=== PATIENT | female | born 1950 | race Caucasian/White ===

== ENCOUNTER → 2019-10-24 11:41 | Outpatient (BNVA) | payer MEDICARE, SELFPAY | PROVIDERS: Family Provider Nurse Practitioner Family; PCP Nurse Practitioner Family; Visit Provider Specialist | DX: S52.572D Other intraarticular fracture of lower end of left radius, subsequent encounter for closed fracture with routine healing (principal); S62.015D Nondisplaced fracture of distal pole of navicular [scaphoid] bone of left wrist, subsequent encounter for fracture with routine healing; W01.0XXD Fall on same level from slipping, tripping and stumbling without subsequent striking against object, subsequent encounter | CPT/HCPCS: 73110 ==

== ENCOUNTER → 2019-12-03 15:26 | Outpatient (BNVA) | payer MEDICARE, SELFPAY | PROVIDERS: PCP Urology; Visit Provider Urology | DX: N30.20 Other chronic cystitis without hematuria (principal); B37.3 Candidiasis of vulva and vagina | CPT/HCPCS: 81001 ==

== ENCOUNTER → 2020-02-11 13:08 | Outpatient (BNVA) | payer MEDICARE, SELFPAY | PROVIDERS: PCP Urology; Visit Provider Nurse Practitioner Family | DX: E78.5 Hyperlipidemia, unspecified (principal); F41.8 Other specified anxiety disorders; N39.0 Urinary tract infection, site not specified | CPT/HCPCS: 80053; 80061; 85025 ==

== ENCOUNTER → 2020-06-26 09:23 | Outpatient (BNVA) | payer MEDICARE, SELFPAY | PROVIDERS: PCP Urology; Visit Provider Nurse Practitioner Family | DX: E78.5 Hyperlipidemia, unspecified (principal); R73.09 Other abnormal glucose | CPT/HCPCS: 80053; 80061; 83036; 85025 ==

== ENCOUNTER 2020-08-14 14:19 | Outpatient (CLI) | payer MEDICARE, SELFPAY ==
--- NOTE | 2020-08-14 13:30 | MM_ITS ---
WS: [id number] BILATERAL DIGITAL SCREENING MAMMOGRAPHY WITH CAD CLINICAL INFORMATION: screening mammo HISTORY: Screening mammogram. No current complaints. COMPARISON: TECHNIQUE: Bilateral CC and MLO views. FINDINGS: Scattered fibroglandular densities bilaterally. No suspicious focal mass, asymmetry, calcifications, or architectural distortion. No evidence of malignancy. A few tiny punctate calcifications. Stable cl ustered calcifications right breast MM/[place] [id number] IMPRESSION: BI-RADS: 2-Benign FOLLOW UP: 1 Year Follow-up Recommend return to annual screening mammography.
== END 2020-08-14 14:20 | disposition home or self-care (01) ==
PROVIDERS: PCP Nurse Practitioner Family; Visit Provider Nurse Practitioner Family
DX: Z12.31 Encounter for screening mammogram for malignant neoplasm of breast (principal)
CPT/HCPCS: 77067

== ENCOUNTER 2020-11-01 14:33 | Emergency (ER) | payer OTHER, SELFPAY ==
[2020-11-01 15:04] VITALS: BP 132/74; PULSE 68; RESP 14; TEMP 37; O2SAT 97; BMI 31.7
--- NOTE | 2020-11-01 15:07 | XRR_ITS ---
PROCEDURE INFORMATION: Exam: XR Right Wrist Exam date and time: 11/01/2020 3:13 PM Age: 70 years old Clinical indication: Injury or trauma; Fall; Blunt trauma (contusions or hematomas); Wrist; Right TECHNIQUE: Imaging protocol: XR Right wrist. Views: 3 or more views. COMPARISON: No relevant prior studies available. FINDINGS: Bones/joints: There are displaced fractures through the base of the 3rd metacarpal. Multi-articular primary osteoarthritic changes including joint space narrowing, subchondral cystic/sclerotic changes, and marginal osteophyte formations. Edema and/or hematoma is present in the soft tissues adjacent to the fracture site. Soft tissues: See above. XR/XR wrist RT min 3V* [id number] IMPRESSION: There are displaced fractures through the base of the 3rd metacarpal with adjacent soft tissue hematoma.
--- NOTE | 2020-11-01 15:07 | XRR_ITS ---
PROCEDURE INFORMATION: Exam: XR Right Hand Exam date and time: 11/01/2020 3:13 PM Age: 70 years old Clinical indication: Injury or trauma; Fall; Blunt trauma (contusions or hematomas); Hand; Right TECHNIQUE: Imaging protocol: XR Right hand. Views: 3 or more views. COMPARISON: No relevant prior studies available. FINDINGS: Bones/joints: Multi-articular primary osteoarthritic changes including joint space narrowing, subchondral cystic/sclerotic changes, and marginal osteophyte formations. There are displaced fractures through the base of the 3rd metacarpal. There is an 18 mm free fracture fragment which is displaced 6 mm posteriorly and 3 mm proximally. Edema and/or hematoma is present in the soft tissues adjacent to the fracture site. Soft tissues: There are benign-appearing soft tissue calcifications. XR/XR hand RT min 3V* [id number] IMPRESSION: There are displaced fractures through the base of the 3rd metacarpal with adjacent soft tissue changes.
--- NOTE | 2020-11-01 15:19 | ED_ITS ---
HPI - Extremity Problem General: Chief complaint: Extremity Injury, Upper Stated complaint: FALL, PAIN IN RT HAND/WRIST/ELBOW Time Seen by Provider: 11/01/20 15:17 History of Present Illness: HPI Narrative: Patient is a 70-year-old female comes to the ED with right elbow and right hand pain. Patient says she was walking outside and tripped and fell. She landed on her right arm. She now has pain and swelling in the dorsal aspect of her right hand. She also is having pain in her right elbow. She has limited movement in right hand due to pain. Associated symptoms: Deny chest pain, fever(s) or rash Review of Systems Const: Denies: fever(s), chills or fatigue Eyes: Denies: change in vision or eye discomfort ENMT: Denies: throat pain, odynophagia, nasal discharge or nasal congestion Card: Denies: chest pain, palpitations, edema, swelling of feet/ankles, dyspnea on exertion or orthopnea Resp: Denies: dyspnea, productive cough or non-productive cough GI: Denies: abdominal pain, nausea, vomiting, diarrhea, constipation or hematochezia : Denies: flank pain, dysuria or hematuria Musc: Reports: extremity pain (Right hand and elbow) and extremity swelling (Right hand); Denies: neck pain or back pain Skin/Breast: Denies: rash or new lesions Neuro: Denies: headache(s), numbness in extremities or weakness in extremities PFS ED PFSH: Medical History Recurrent UTI Surgical History History of dilation and curettage Family History Mother , AT AGE 56-CANCER No problems noted. Father , AT AGE 83 Asthma Social History Smoking and tobacco status: never smoked Alcohol intake: current Alcohol intake frequency: holidays/special occasions only Desire information about substance/drug rehabilitation?: No Counseling given: No Adopted: No Caregiver/support person: No Lives independently: No Household members: spouse Marital status: Current occupational status: retired History of recent travel: No Physical Exam Const: COMMON NORMALS: no acute distress and patient oriented x3 GENERAL APPEARANCE: cooperative and comfortable HENMT: COMMON NORMALS: normocephalic HEAD & SCALP: normocephalic MOUTH: Normal oral and palatal mucosa present THROAT: posterior oropharynx normal and uvula midline Neck/C-Spine: COMMON NORMALS: supple GENERAL: Yes normal visual inspection Resp: COMMON NORMALS: normal respiratory effort, No retractions, No use of accessory muscles and clear to auscultation bilaterally AUSCULTATION: clear to auscultation bilaterally Cardio: COMMON NORMALS: regular rate, regular rhythm, S1 normal heart sound present, S2 normal heart sound present, No gallops present (Cardio), No clicks present (Cardio), No murmurs present (Cardio) and Peripheral pulses 2+ throughout RATE: regular rate RHYTHM: regular rhythm HEART SOUNDS: S1 normal heart sound present and S2 normal heart sound present PERIPHERAL PULSES: Peripheral pulses 2+ throughout GI: COMMON NORMALS: Normal to inspection, nondistended, normoactive bowel sounds present, Soft to palpation, non-tender and no masses PALPATION: Yes Soft to palpation : COMMON NORMALS: Yes no CVA tenderness BLADDER/KIDNEY EXAM: Yes no CVA tenderness Back/Pelvis: COMMON NORMALS: no CVA tenderness Extremity: GENERAL: Yes normal exam except as noted RIGHT UPPER EXTREMITY: Yes elbow joint (No ecchymosis or edema on elbow) Right elbow: Yes inspection, Yes palpation (Mild tenderness on the lateral aspect of elbow.), Yes ROM (Full with some mild pain) and Yes neurovascular exam (Intact radial pulse 2+) and Yes hand & digits Right hand and digits: Yes inspection (Visible swelling dorsal side second/third metacarp), Yes palpation (Tenderness over second and third metacarpal), Yes ROM exam (Limited due to pain) and Yes neurovascular exam (Intact.) Neuro: COMMON NORMALS: patient oriented x3 and moves all extremities Procedures Nerve Block Nerve Block 1: Time out performed: Yes Local Anesthetic: lidocaine 1% Amount of anesthesia used (mL): 10 Side: right Nerve Blocks: hematoma block (3rd metacarpal fracture-) Procedure Successful: Yes Patient Tolerated Procedure: well Complications: none Additional Comments: Patient tolerated procedure well and had very minimal pain when putting pressure in reducing fracture for splint. Course Vital Signs: Vital signs: Vital Signs Temperature 98.6 F 11/01/20 15:04 Pulse Rate 68 11/01/20 15:04 Respiratory Rate 14 11/01/20 15:04 Blood Pressure 132/74 11/01/20 15:04 Pulse Oximetry 97 11/01/20 15:04 MDM - Extremity (Nontraumatic) MDM Narrative: Medical decision making narrative: Patient is a 70-year-old female comes to the ED with right hand and right elbow pain. X-ray showed a third metacarpal fracture that was displaced. I performed a hematoma block for pain management and nurse reduced and splinted right hand and volar splint. Follow-up x-rays were performed and it showed displaced fracture alignment improved. Right elbow x-ray showed no acute fractures or findings, but patient was put in a sling to help with symptoms. I placed an order with case management for patient to be referred to orthopedic doctor. Patient was sent home with pain meds and I told her that case management will contact her in the next several days set up an appointment with orthopedic doctor. She was told to keep splint dry and to limit use of right arm. Return to ED precautions given. Patient understood and agreed with plan. Imaging Data^: Xray Ortho: Attestation: I personally reviewed and interpreted this imaging study as follows: My impression: Right elbow x-ray?no acute fractures or findings. Right hand x-ray showed-displaced fractures through the base of the 3rd metacarpal with adjacent soft tissue changes. Follow-up x-ray of right hand after it was reduced and splinted showed improvement in alignment. Radiologist's impression: [address] [address] XRay Report Signed Patient: Pricila Salinas Unit #: [id number] : 1950 Age/Sex: 70 / F ADM Date: 11/01/20 Loc: ER Room/Bed: Attending Dr: Ordering Provider/Ordering MD: Aris Suazo Date of Service: 11/01/20 Procedure(s): XR hand RT min 3V* 43903 Accession Number(s): [id number] Report Number: [id number] PROCEDURE INFORMATION: Exam: XR Right Hand Exam date and time: 11/01/2020 3:13 PM Age: 70 years old Clinical indication: Injury or trauma; Fall; Blunt trauma (contusions or hematomas); Hand; Right TECHNIQUE: Imaging protocol: XR Right hand. Views: 3 or more views. COMPARISON: No relevant prior studies available. FINDINGS: Bones/joints: Multi-articular primary osteoarthritic changes including joint space narrowing, subchondral cystic/sclerotic changes, and marginal osteophyte formations. There are displaced fractures through the base of the 3rd metacarpal. There is an 18 mm free fracture fragment which is displaced 6 mm posteriorly and 3 mm proximally. Edema and/or hematoma is present in the soft tissues adjacent to the fracture site. Soft tissues: There are benign-appearing soft tissue calcifications. XR/XR hand RT min 3V* [id number] IMPRESSION: There are displaced fractures through the base of the 3rd metacarpal with adjacent soft tissue changes. Dictated By: Indu Huggins MD Signed By: Indu Huggins MD Signed Date/Time: 11/01/20 1537 DD/ [address] [address] XRay Report Signed Patient: Pricila Salinas Unit #: [id number] : 1950 Age/Sex: 70 / F ADM Date: 11/01/20 Loc: ER Room/Bed: Attending Dr: Ordering Provider/Ordering MD: Aris Suazo Date of Service: 11/01/20 Procedure(s): XR hand RT min 3V* 95450 Accession Number(s): [id number] Report Number: [id number] PROCEDURE INFORMATION: Exam: XR Right Hand Exam date and time: 11/01/2020 3:13 PM Age: 70 years old Clinical indication: Injury or trauma; Fall; Blunt trauma (contusions or hematomas); Hand; Right TECHNIQUE: Imaging protocol: XR Right hand. Views: 3 or more views. COMPARISON: No relevant prior studies available. FINDINGS: Bones/joints: Multi-articular primary osteoarthritic changes including joint space narrowing, subchondral cystic/sclerotic changes, and marginal osteophyte formations. There are displaced fractures through the base of the 3rd metacarpal. There is an 18 mm free fracture fragment which is displaced 6 mm posteriorly and 3 mm proximally. Edema and/or hematoma is present in the soft tissues adjacent to the fracture site. Soft tissues: There are benign-appearing soft tissue calcifications. XR/XR hand RT min 3V* [id number] IMPRESSION: There are displaced fractures through the base of the 3rd metacarpal with adjacent soft tissue changes. Dictated By: Indu Huggins MD Signed By: Indu Huggins MD Signed Date/Time: 11/01/201536 DD/ 35 Discharge Plan Discharge Patient Disposition: Home Clinical Impression: Fracture, metacarpal Qualifiers: Encounter type: initial encounter Metacarpal bone: third Fracture type: closed Metacarpal location: base Fracture alignment: displaced Laterality: right Qualified Code(s): S62.312A - Displaced fracture of base of third metacarpal bone, right hand, initial encounter for closed fracture Condition: Stable Prescriptions: No Action atorvastatin [Lipitor] 10 mg tablet 10 mg PO ONCE Qty: 90 RF: 1 fluoxetine [Prozac] 20 mg capsule 20 mg PO DAILY 90 Days Qty: 90 RF: 1 Advanced Probiotic 625 mg (10 billion cell) capsule PO RF: 0 loratadine 10 mg capsule 10 mg PO ONCE RF: 0 sulfamethoxazole-trimethoprim 800-160 mg tablet 1 tab PO BID Qty: 60 RF: 2 Discharge Orders: Discharge ED (Routine); Ordered 11/01/20 Ordered By: Aris Suazo Referrals: Padmini Warren FNP [Primary Care Provider] - Discharge Diet: Regular Discharge Activity: Limit activity as instructed Patient Instructions: Hand Fracture (ED) Activity Restrictions/Additional Instructions: Follow-up with medical provider as directed. Case management should be contacting you in the next several days to set up an appoint with orthopedic doctor. Keep splint on and dry and limit activity with right hand. Take med ications as prescribed. Return to the ER or your medical provider if condition worsens. Please read and understand discharge instructions. If any questions, please ask. Coding Level of Care Code ED Dry Talc Racker for Viraj Fwsaroj Exam Comprehensive
--- NOTE | 2020-11-01 16:03 | XRR_ITS ---
PROCEDURE INFORMATION: Exam: XR Right Hand Exam date and time: 11/01/2020 4:05 PM Age: 70 years old Clinical indication: Injury or trauma; Fall; Blunt trauma (contusions or hematomas); Hand; Right; Additional info: Hand injury, post splinting TECHNIQUE: Imaging protocol: XR Right hand. Views: 3 or more views. COMPARISON: CR (UP EXM, ) 11/01/2020 3:12 PM FINDINGS: Bones/joints: There is been improved alignment of the acute fractures through the base of the 3rd metacarpal. Multi-articular primary osteoarthritic changes including joint space narrowing, subchondral cystic/sclerotic changes, and marginal osteophyte formations. Soft tissues: Status post splinting. Soft tissues are somewhat obscured. XR/XR hand RT min 3V* [id number] IMPRESSION: Status post splinting with improved alignment of the acute fractures through the base of the 3rd metacarpal.
[2020-11-01] MEDS: HYDROcodone-acetaminophen 7.5-325 mg Tablet 1 TAB PO (16:06)
--- NOTE | 2020-11-01 16:14 | XRR_ITS ---
PROCEDURE INFORMATION: Exam: XR Right Elbow Exam date and time: 11/01/2020 4:15 PM Age: 70 years old Clinical indication: Injury or trauma; Fall; Blunt trauma (contusions or hematomas); Elbow; Right TECHNIQUE: Imaging protocol: XR Right elbow. Views: 1 or 2 views. COMPARISON: No relevant prior studies available. FINDINGS: Bones/joints: Unremarkable. Soft tissues: There is edema in the soft tissues along the ulnar aspect of the elbow. XR/XR elbow RT 2V 92505 IMPRESSION: There is edema in the soft tissues along the ulnar aspect of the elbow.
--- NOTE | 2020-11-02 09:49 | DCPLANNER ---
dental office manager had message to schedule a follow up appointment for patient with ortho. dental office manager called the ortho clinic, spoke with Kate, gave clinic patients information. dental office manager was told that patients information would be printed and reviewed. Clinic will call patient with appointment information.
--- NOTE | 2020-11-03 07:27 | DCPLANNER ---
Patient had a follow up appointment with ortho on 11.02.20 - patient did attend appointment.
== END 2020-11-01 17:15 | disposition home or self-care (01) ==
PROVIDERS: Emergency Provider Physician Assistant; PCP Nurse Practitioner Family
DX: S62.312A Displaced fracture of base of third metacarpal bone, right hand, initial encounter for closed fracture (principal); W01.0XXA Fall on same level from slipping, tripping and stumbling without subsequent striking against object, initial encounter
CPT/HCPCS: 12345; 26605; 29125; 73070; 73110; 73130; 99282; 99283

== ENCOUNTER 2020-11-02 16:55 | Outpatient (CLI) | payer MEDICARE, SELFPAY | END 2020-11-02 16:56 | disposition home or self-care (01) | LOC: SPT 11-03 08:47 | PROVIDERS: PCP Nurse Practitioner Family; Visit Provider Specialist | DX: Z46.89 Encounter for fitting and adjustment of other specified devices (principal); S62.332D Displaced fracture of neck of third metacarpal bone, right hand, subsequent encounter for fracture with routine healing; X58.XXXD Exposure to other specified factors, subsequent encounter | CPT/HCPCS: 97760; L3984 ==

== ENCOUNTER 2020-11-13 13:21 | Emergency (ER) | payer MEDICARE, SELFPAY ==
[2020-11-13 13:28] VITALS: BP 156/76; PULSE 81; RESP 16; TEMP 36.3; O2SAT 98; BMI 30.9
[2020-11-13 13:32] VITALS: BP 156/76; PULSE 72; RESP 16; O2SAT 98
--- NOTE | 2020-11-13 13:53 | XR_ITS ---
WS: [id number] Left ankle, 3 views, 11/13/2020 Clinical Data: injury Comparison: None. Findings: There is an oblique undisplaced fracture of the distal left fibula. The medial malleolus is intact. T here is soft tissue swelling over the lateral malleolus. The ankle mortise is normal. XR/XR ankle LT min 3V* [id number] Impression: Undisplaced fracture distal left fibula.
--- NOTE | 2020-11-13 13:54 | W.ED.LOWEXIN ---
HPI - Extremity Injury (Lower) General: Chief Complaint: Extremity Injury, Lower Stated Complaint: FALL, L ANKLE INJURY Time Seen by Provider: 11/13/20 13:41 Source: patient Mode of arrival: wheelchair Limitations: no limitations History of Present Illness: HPI Narrative: Patient is a nice 70-year-old female who presents to ED today for evaluation of her left ankle injury. Patient tells me she tripped over a step earlier today and twisted her ankle. She is not able to be ambulatory on the extremity. She denies any other injuries sustained during the fall. complaint: ankle injury Onset (ago): hour(s) Place: home Severity: moderate Context: fall Associated symptoms: Reports inability to bear weight Other symptoms: none Review of Systems Musc: Reports: joint pain (L ankle) and joint swelling Neuro: Denies: numbness in extremities or sensory changes PFS ED PFSH: Medical History (Updated 11/13/20 @ 14:34 by JUAN DIEGO Perry) Recurrent UTI Surgical History History of dilation and curettage Family History Mother , AT AGE 56-CANCER No problems noted. Father , AT AGE 83 Asthma Social History Smoking and tobacco status: never smoked Alcohol intake: current Alcohol intake frequency: holidays/special occasions only Desire information about substance/drug rehabilitation?: No Counseling given: No Adopted: No Caregiver/support person: No Lives independently: No Household members: spouse Marital status: Current occupational status: retired History of recent travel: No Physical Exam Const: COMMON NORMALS: no acute distress, average body habitus, patient oriented x3, no limitations, healthy appearing, alert and well nourished Extremity: GENERAL: Yes normal exam except as noted LEFT LOWER EXTREMITY: Yes ankle joint (TTP and swelling noted to lateral ankle) Left ankle: Yes neurovascular exam (normal) Neuro: COMMON NORMALS: patient oriented x3 and no sensory deficits noted SENSORIUM/ORIENTATION: Yes alert GAIT: Yes Unable to assess gait Skin: COMMON NORMALS: no rashes or lesions noted GENERAL SKIN EXAM: no rashes or lesions noted Course Vital Signs: Vital signs: Vital Signs Temperature 97.3 F L 11/13/20 13:28 Pulse Rate 72 11/13/20 13:32 Respiratory Rate 16 11/13/20 13:32 Blood Pressure 156/76 11/13/20 13:32 Pulse Oximetry 98 11/13/20 13:32 MDM - Extremity Injury (Lower) MDM Narrative: Medical decision making narrative: Patient has a fracture of her right hand and recently underwent surgery for this. She now has a left distal fibular fracture. She will require a wheelchair for ambulation. HOME will bring her one. Extremity was splinted. Case management is working on her orthopedic follow-up. Patient tells me she has plenty of pain medications left over from her surgery she feels comfortable taking. Imaging Data^: XR L ankle: Radiologist's impression: [employer] [address] XRay Report Signed Patient: Pricila Salinas Unit #: [id number] : 1950 Age/Sex: 70 / F ADM Date: 11/13/20 Loc: ER Room/Bed: Attending Dr: Ordering Provider/Ordering MD: Meche Reyes Date of Service: 11/13/20 Procedure(s): XR ankle LT min 3V* 07908 Accession Number(s): [id number] Report Number: [id number] WS: [id number] Left ankle, 3 views, 11/13/2020 Clinical Data: injury Comparison: None. Findings: There is an oblique undisplaced fracture of the distal left fibula. The medial malleolus is intact. There is soft tissue swelling over the lateral malleolus. The ankle mortise is normal. XR/XR ankle LT min 3V* [id number] Impression: Undisplaced fracture distal left fibula. Dictated By: Stella Garcia MD Signed By: Stella Garcia MD Signed Date/Time: 11/13/201418 DD/ 17 Discharge Plan Discharge Patient Disposition: Home Clinical Impression: Fracture of distal end of left fibula Qualifiers: Encounter type: initial encounter Fracture type: closed Fracture morphology: unspecified fracture morphology Qualified Code(s): S82.832A - Other fracture of upper and lower end of left fibula, initial encounter for closed fracture Condition: Stable Prescriptions: No Action atorvastatin [Lipitor] 10 mg tablet 10 mg PO ONCE Qty: 90 RF: 1 fluoxetine [Prozac] 20 mg capsule 20 mg PO DAILY 90 Days Qty: 90 RF: 1 Advanced Probiotic 625 mg (10 billion cell) capsule PO RF: 0 loratadine 10 mg capsule 10 mg PO ONCE RF: 0 (DME) Fast Form radial gutter splint See Rx Instructions .Route .MEDSUPPLY Qty: 1 RF: 0 sulfamethoxazole-trimethoprim 800-160 mg tablet 1 tab PO BID Qty: 60 RF: 2 Discharge Orders: Discharge ED (Routine); Ordered 11/13/20 Ordered By: Meche Reyes Referrals: Padmini Warren FNP [Primary Care Provider] - Activity Restrictions/Additional Instructions: We have provided you a wheelchair as you are not able to bear weight on your left leg and other ambulatory assistance products are not an option as you also have a fractured right hand. You need to elevate your left leg and apply ice to extremity as often as possible to help with the swelling. Case management should be contacting you shortly so you may follow-up with orthopedics. Coding Level of Care Code ED Shredded Filler Machine Wrapper Layer for Viraj Fwsaroj Exam Expanded Problem Focused
--- NOTE | 2020-11-13 14:10 | PC.NURSE ---
XR performed at bedside
--- NOTE | 2020-11-13 14:26 | DCPLANNER ---
client services manager was asked to schedule a follow up appointment for patient with ortho. client services manager called the ortho clinic, spoke with Kate, gave clinic patients information. client services manager was told that patients information would be printed and reviewed. Clinic will call patient with appointment information.
--- NOTE | 2020-11-17 08:05 | DCPLANNER ---
Patient has a follow up appointment scheduled for Wednesday, November 18, 2020 at 11:[address] Beyer at [facility]. Clinic will call patient with appointment information.
--- NOTE | 2020-12-29 15:52 | DCPLANNER ---
Patient had a follow up appointment scheduled for 11.18.[address] Beyer at [facility] - patient did attend appointment.
== END 2020-11-13 14:42 | disposition home or self-care (01) ==
PROVIDERS: Emergency Provider Physician Assistant; PCP Nurse Practitioner Family
DX: S82.832A Other fracture of upper and lower end of left fibula, initial encounter for closed fracture (principal); X50.1XXA Overexertion from prolonged static or awkward postures, initial encounter
CPT/HCPCS: 12345; 29515; 73610; 99282; 99283

== ENCOUNTER → 2020-11-18 10:36 | Outpatient (BNVA) | payer MEDICARE, SELFPAY | PROVIDERS: PCP Nurse Practitioner Family; Visit Provider Specialist | DX: S62.332A Displaced fracture of neck of third metacarpal bone, right hand, initial encounter for closed fracture (principal); S62.312A Displaced fracture of base of third metacarpal bone, right hand, initial encounter for closed fracture; S82.832A Other fracture of upper and lower end of left fibula, initial encounter for closed fracture; Z46.89 Encounter for fitting and adjustment of other specified devices; S82.832D Other fracture of upper and lower end of left fibula, subsequent encounter for closed fracture with routine healing; X58.XXXD Exposure to other specified factors, subsequent encounter | CPT/HCPCS: 73110; 73130; 73610; 97760; L4361 ==

== ENCOUNTER 2020-11-18 12:27 | Outpatient (CLI) | payer MEDICARE, SELFPAY | END 2020-11-18 12:28 | disposition home or self-care (01) | LOC: SPT 12:28 | PROVIDERS: PCP Nurse Practitioner Family; Visit Provider Specialist | DX: Z46.89 Encounter for fitting and adjustment of other specified devices (principal); S82.832D Other fracture of upper and lower end of left fibula, subsequent encounter for closed fracture with routine healing; X58.XXXD Exposure to other specified factors, subsequent encounter | CPT/HCPCS: 97760; L4361 ==

== ENCOUNTER → 2020-11-25 09:31 | Outpatient (BNVA) | payer MEDICARE, SELFPAY | PROVIDERS: PCP Nurse Practitioner Family; Visit Provider Specialist | DX: S62.332A Displaced fracture of neck of third metacarpal bone, right hand, initial encounter for closed fracture (principal); S62.312A Displaced fracture of base of third metacarpal bone, right hand, initial encounter for closed fracture; S82.832A Other fracture of upper and lower end of left fibula, initial encounter for closed fracture; S82.899A Other fracture of unspecified lower leg, initial encounter for closed fracture | CPT/HCPCS: 73130; 73610 ==

== ENCOUNTER → 2020-12-02 09:02 | Outpatient (BNVA) | payer MEDICARE, SELFPAY | PROVIDERS: PCP Nurse Practitioner Family; Visit Provider Specialist | DX: S62.332A Displaced fracture of neck of third metacarpal bone, right hand, initial encounter for closed fracture (principal); S62.312A Displaced fracture of base of third metacarpal bone, right hand, initial encounter for closed fracture; S82.832A Other fracture of upper and lower end of left fibula, initial encounter for closed fracture; S82.899A Other fracture of unspecified lower leg, initial encounter for closed fracture | CPT/HCPCS: 73130; 73610 ==

== ENCOUNTER → 2020-12-21 10:28 | Outpatient (BNVA) | payer MEDICARE, SELFPAY | PROVIDERS: PCP Nurse Practitioner Family; Visit Provider Specialist | DX: S62.312A Displaced fracture of base of third metacarpal bone, right hand, initial encounter for closed fracture (principal); S82.832A Other fracture of upper and lower end of left fibula, initial encounter for closed fracture; X58.XXXA Exposure to other specified factors, initial encounter | CPT/HCPCS: 73130; 73610; 73630 ==

== ENCOUNTER → 2021-01-04 11:59 | Outpatient (BNVA) | payer MEDICARE, SELFPAY | PROVIDERS: PCP Nurse Practitioner Family; Visit Provider Specialist | DX: S62.312D Displaced fracture of base of third metacarpal bone, right hand, subsequent encounter for fracture with routine healing (principal); S82.832D Other fracture of upper and lower end of left fibula, subsequent encounter for closed fracture with routine healing; W01.0XXD Fall on same level from slipping, tripping and stumbling without subsequent striking against object, subsequent encounter | CPT/HCPCS: 73130; 73610 ==

== ENCOUNTER → 2021-07-22 11:56 | Outpatient (BNVA) | payer MEDICARE, SELFPAY | PROVIDERS: PCP Nurse Practitioner Family; Visit Provider Nurse Practitioner Family | DX: Z00.00 Encounter for general adult medical examination without abnormal findings (principal); E78.5 Hyperlipidemia, unspecified; R73.9 Hyperglycemia, unspecified | CPT/HCPCS: 80053; 80061; 82306; 82607; 83036; 85025 ==

== ENCOUNTER → 2021-08-05 16:05 | Outpatient (BNVA) | payer MEDICARE, SELFPAY | PROVIDERS: PCP Nurse Practitioner Family; Visit Provider Nurse Practitioner Family | DX: N39.0 Urinary tract infection, site not specified (principal) | CPT/HCPCS: 81003; 87086 ==

== ENCOUNTER → 2021-09-02 14:37 | Outpatient (BNVA) | payer MEDICARE, SELFPAY | PROVIDERS: PCP Nurse Practitioner Family; Visit Provider Nurse Practitioner Family | DX: N39.0 Urinary tract infection, site not specified (principal) | CPT/HCPCS: 81003 ==

== ENCOUNTER → 2021-11-29 09:09 | Outpatient (BNVA) | payer MEDICARE, SELFPAY | PROVIDERS: PCP Nurse Practitioner Family; Visit Provider Nurse Practitioner Family | DX: N39.0 Urinary tract infection, site not specified (principal) | CPT/HCPCS: 81003 ==

== ENCOUNTER → 2022-02-14 13:54 | Outpatient (BNVA) | payer MEDICARE, SELFPAY | PROVIDERS: PCP Nurse Practitioner Family; Visit Provider Nurse Practitioner Family | DX: N39.0 Urinary tract infection, site not specified (principal) | CPT/HCPCS: 81000; 81003; 82043; 87077; 87086; 87184 ==

== ENCOUNTER → 2022-03-30 13:41 | Outpatient (BNVA) | payer MEDICARE, SELFPAY | PROVIDERS: PCP Nurse Practitioner Family; Visit Provider Nurse Practitioner Family | DX: N39.0 Urinary tract infection, site not specified (principal) | CPT/HCPCS: 81003; 99213 ==

== ENCOUNTER → 2022-05-10 14:03 | Outpatient (BNVA) | payer MEDICARE, SELFPAY | PROVIDERS: PCP Nurse Practitioner Family; Visit Provider Surgery | DX: T14.8XXA Other injury of unspecified body region, initial encounter (principal); X58.XXXA Exposure to other specified factors, initial encounter | CPT/HCPCS: 99204 ==

== ENCOUNTER → 2022-07-06 13:04 | Outpatient (BNVA) | payer MEDICARE, SELFPAY | PROVIDERS: PCP Nurse Practitioner Family; Visit Provider Nurse Practitioner Family | DX: N39.0 Urinary tract infection, site not specified (principal) | CPT/HCPCS: 81003; 99203; 99213 ==

== ENCOUNTER → 2023-02-27 15:41 | Outpatient (BNVA) | payer MEDICARE, SELFPAY | PROVIDERS: PCP Nurse Practitioner Family; Visit Provider Nurse Practitioner Family | DX: E78.5 Hyperlipidemia, unspecified (principal); R00.2 Palpitations | CPT/HCPCS: 80053; 80061; 83735; 84443; 85025 ==

== ENCOUNTER → 2023-04-06 13:58 | Outpatient (BNVA) | payer MEDICARE, SELFPAY | PROVIDERS: PCP Nurse Practitioner Family; Visit Provider Internal Medicine | DX: R00.2 Palpitations (principal); E78.5 Hyperlipidemia, unspecified | CPT/HCPCS: 93005; 99204 ==

== ENCOUNTER 2023-04-28 12:13 | Outpatient (CLI) | payer MEDICARE, SELFPAY ==
--- NOTE | 2023-04-28 12:45 | USCV_ITS ---
Pricila Salinas Age: 72 Gender: F : 1950 Exam Date: 04/28/2023 12:57 Ordering Phys: Christo Bar M.D ([email or web address]) Technologist: AFIA Exam Location: [facility] [place] Indication: CHEST PAIN/SHORTNESS OF BREATH BP: 138 / 80 HR: 67 Rhythm: Sinus Technical Quality: Adequate MEASUREMENTS (Male / Female) Normal Values 2D ECHO LVOT Diameter 2.0 cm LV Ejection Fraction MOD 2C 71.5 % LV Ejection Fraction 2C AL 74.3 % LA Diameter 2.7 cm LA Width 3.1 cm LA Height 3.6 cm RA Width 3.1 cm RA Height 3.8 cm Aorta at Sinotubular Diameter 2.0 cm IVC Diameter 1.2 cm M-MODE Aortic Annulus Diameter 2.7 cm LA Ao Ratio MM 1.0 MV E Point Septal Separation 0.6 cm DOPPLER AV Peak Velocity 105.0 cm/s LVOT Peak Velocity 105.0 cm/s AV Area Cont Eq vti 3.4 cm squared AV Area Cont Eq pk 3.1 cm squared MV Peak Velocity 83.0 cm/s MV Area PHT 4.0 cm squared Mitral E to A Ratio 0.8 MV E' Velocity 35.5 cm/s Mitral E to MV E' Ratio 7.0 Mitral E to LV E' Lateral Ratio 6.4 Mitral E to LV E' Septal Ratio 7.8 TR Peak Velocity 195.6 cm/s TR Peak Gradient 15.3 mmHg TR Mean Velocity 168.1 cm/s TR Mean Gradient 11.4 mmHg TR Velocity Time Integral 64.4 cm TV Peak E Velocity 41.0 cm/s Right Atrial Pressure 3.0 mmHg Pulmonary Artery Systolic Pressu 18.3 mmHg PV Peak Velocity 80.0 cm/s RV Acceleration Time 0.1 s RV Ejection Time 0.3 s RV AcT/ET 0.4 FINDINGS Left Ventricle Left ventricle is normal in size. LV systolic function is normal with EF of 60 to 65%. No regional wall motion abnormalities are seen. Grade 1 diastolic dysfunction Right Ventricle The right ventricle is normal in size and function. Right Atrium The right atrium is normal in size. Left Atrium The left atrium is normal in size. Mitral Valve Structurally normal mitral valve. Trace mitral regurgitation Aortic Valve Structurally normal aortic valve. Mild aortic regurgitation Tricuspid Valve Mild tricuspid regurgitation. Insufficient TR jet to calculate RVSP. Pulmonic Valve Not well-visualized. Trace pulmonic regurgitation Pericardium Normal pericardium without effusion. Aorta Normal ascending aorta dimension. IVC The inferior vena cava appears normal. CONCLUSIONS LV systolic function is normal with EF of 60 to 65%. Grade 1 diastolic dysfunction Trace mitral regurgitation Mild aortic regurgitation Mild tricuspid regurgitation Trace pulmonic regurgitation No comparison studies are available. Christo Bar MD (Electronically Signed) Final Date: 29 April 2023 11:00 S
== END 2023-04-28 12:14 | disposition home or self-care (01) ==
PROVIDERS: PCP Nurse Practitioner Family; Visit Provider Internal Medicine
DX: R06.02 Shortness of breath (principal); R07.9 Chest pain, unspecified
CPT/HCPCS: 93306

== ENCOUNTER 2023-06-21 12:37 | Emergency (ER) | payer MEDICARE, SELFPAY ==
[2023-06-21] VITALS (15 sets, daily range): BP systolic 137–144; BP diastolic 63–84; PULSE 63–84; RESP 15–25; TEMP 36.4; O2SAT 94–100
--- NOTE | 2023-06-21 12:51 | XR_ITS ---
WS: [id number] Exam: XR chest 1V portable [id number] Date/Time of Exam: 06/21/2023 12:54 PM Reason For Exam: syncope Comparison 02/11/2019. The lungs are fully expanded and clear. Normal cardiomediastinal silhouette. No pleural effusions. Re gional bony elements are intact. Moderate DJD of both shoulders. IMPRESSION: 1. No acute cardiopulmonary finding.
--- NOTE | 2023-06-21 13:03 | ECG_ITS ---
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 Measurements Intervals [place] Rate: 74 P: 62 VT: 165 QRS: 48 QRSD: 82 T: 59 QT: 406 QTc: 452 Interpretive Statements SINUS RHYTHM POSSIBLE LEFT ATRIAL ENLARGEMENT [-0.1mV P-WAVE IN V1/V2] POSSIBLE RIGHT VENTRICULAR CONDUCTION DELAY [RSR (QR) IN V1/V2] Compared to ECG 04/06/2023 14:02:31 No significant changes Electronically Signed On 06-21-2023 16:37:32 CDT by Radha Baker M.D. [id number]
[2023-06-21] MEDS: sodium chloride 0.9% 1,000 ML 999 ML IV (13:10)
--- NOTE | 2023-06-21 13:43 | W.ED.NAVMDI ---
HPI - Nausea/Vomiting/Diarrhea General: Chief complaint: Nausea/Vomiting/Diarrhea Stated complaint: N/V Sycope Time Seen by Provider: 06/21/23 12:51 History of Present Illness: Patient presents to the ER with possible syncopal episode. Patient went for the [employer] and ate breakfast this morning and was doing well but then she had a vomiting episode where she vomited a large amount of a brown liquid. Then she may have passed out. Patient reports being cool diaphoretic. Patient had EMS administered 25 mg of Phenergan total. Review of Systems General: Reports: 10 or more systems reviewed and unremarkable except in HPI and below PFSH ED PFSH: Medical History Hyperlipidemia Multiple renal calculi Recurrent UTI Surgical History History of dilation and curettage Family History Mother , AT AGE 56-CANCER No problems noted. Father , AT AGE 83 Asthma Social History Smoking and tobacco status: never smoked Second hand smoke exposure: No Alcohol intake: current Alcohol intake frequency: holidays/special occasions only Substance/Drug Use: never Desire information about substance/drug rehabilitation?: No Counseling given: No Adopted: No Caregiver/support person: No Lives independently: No Household members: spouse Marital status: service: No Current occupational status: retired Current gender identity: Female Special neli needs: No Agree to transfusion: Yes Physical Exam Const: COMMON NORMALS: no acute distress, average body habitus, patient oriented x3, no limitations, healthy appearing, alert and well nourished HENMT: COMMON NORMALS: normocephalic, atraumatic, hearing grossly normal bilaterally, external ears normal, Normal external nose present and moist oral mucous membranes HEAD & SCALP: normocephalic and atraumatic NOSE: Normal external nose present EXTERNAL EAR: Yes external ears normal Eye: COMMON NORMALS: Equal, round and reactive pupils present, EOMs intact bilaterally, conjunctivae normal and no scleral icterus CONJUNCTIVA: Yes conjunctivae normal PUPIL: Yes Equal, round and reactive pupils present Neck/C-Spine: COMMON NORMALS: full ROM, no lymphadenopathy, supple, no meningeal signs, no JVD and Thyroid normal THYROID: Thyroid normal Lymph: LYMPHATIC: no lymphadenopathy noted Chest: COMMONS NORMALS: normal inspection of the chest and normal palpation of entire chest wall Resp: COMMON NORMALS: normal respiratory effort, No retractions, No use of accessory muscles and clear to auscultation bilaterally AUSCULTATION: clear to auscultation bilaterally Cardio: COMMON NORMALS: no JVD, regular rate, regular rhythm, S1 normal heart sound present, S2 normal heart sound present, No gallops present (Cardio), No clicks present (Cardio) and No murmurs present (Cardio) RATE: regular rate RHYTHM: regular rhythm HEART SOUNDS: S1 normal heart sound present and S2 normal heart sound present GI: COMMON NORMALS: Normal to inspection, nondistended, normoactive bowel sounds present, Soft to palpation, non-tender, No hepatosplenomegaly present and no masses PALPATION: Yes Soft to palpation and Yes No hepatosplenomegaly present : COMMON NORMALS: Yes no CVA tenderness BLADDER/KIDNEY EXAM: Yes no CVA tenderness Back/Pelvis: COMMON NORMALS: no CVA tenderness Neuro: COMMON NORMALS: patient oriented x3 SENSORIUM/ORIENTATION: Yes alert MENINGEAL SIGNS: Yes no meningeal signs Course Vital Signs: Vital signs: Vital Signs Temperature 97.5 F L 06/21/23 12:45 Pulse Rate 70 06/21/23 14:45 Respiratory Rate 21 H 06/21/23 14:45 Blood Pressure 144/63 06/21/23 14:45 Pulse Oximetry 95 06/21/23 14:45 Oxygen Delivery Me thod Room Air 06/21/23 12:45 MDM - Nausea/Vomiting/Diarrhea Medical Decision Making Presents to the ER with complaints of syncope and nausea vomiting. Patient was bolused with a liter normal saline, she received 25 mg of Phenergan in the ambulance, lab work was drawn which showed a slightly elevated white count at 14 rest of her blood count was normal as well as her metabolic panel in her urine only showed 1+ ketones. Patient was feeling much better upon my reexamination and said that she lost her a week ago and has been under a lot of stress. Patient's family is at bedside and they are excepting of this and are willing to take her home. Patient be discharged home to follow-up with her PCP in approximately next week. Differential Diagnosis Unlikely traveler's diarrhea, food poisoning, gastroenteritis, clostridium difficile infection, drug-induced nausea and vomiting or dehydration Medical Records I reviewed the patient's medical records. Lab Data I reviewed the patient's lab results. 06/21/23 13:38 06/21/23 13:38 Laboratory Results WBC 14.62 10^3/uL (3.29-11.43) H 06/21/23 13:38 RBC 4.37 10^6/uL (3.85-5.65) 06/21/23 13:38 Hgb 12.70 g/dL (11.27-16.99) 06/21/23 13:38 Hct 39.9 % (36-47) 06/21/23 13:38 MCV 91.3 fl (85-98) 06/21/23 13:38 MCH 29.1 pg (27-33) 06/21/23 13:38 MCHC 31.8 g/dL (30-55) 06/21/23 13:38 RDW 13.8 % (12.1-15.1) 06/21/23 13:38 Plt Count 236 10^3/cmm (157-399) 06/21/23 13:38 MPV 9.4 fL (7.4-10.4) 06/21/23 13:38 Neut % (Auto) 88.9 % 06/21/23 13:38 Lymph % (Auto) 4.9 % 06/21/23 13:38 [place] % (Auto) 5.3 % 06/21/23 13:38 Eos % (Auto) 0.2 % 06/21/23 13:38 Baso % (Auto) 0.2 % 06/21/23 13:38 Neut # (Auto) 12.99 10^3/uL (1.8-7.7) H 06/21/23 13:38 Lymph # (Auto) 0.7 10^3/uL (0.8-4.8) L 06/21/23 13:38 [place] # (Auto) 0.8 10^3/uL (0.2-0.9) 06/21/23 13:38 Eos # (Auto) 0.0 10^3/uL (0.0-0.8) 06/21/23 13:38 Baso # (Auto) 0.0 10^3/uL (0.0-0.1) 06/21/23 13:38 Nucleated RBC % (auto) 0 % 06/21/23 13:38 Nucleated RBCs # 0.0 /100WBC 06/21/23 13:38 Sodium 138 mmol/L (136-145) 06/21/23 13:38 Potassium 3.8 mmol/L (3.5-5.1) 06/21/23 13:38 Chloride 103 mmol/L (98-107) 06/21/23 13:38 Carbon Dioxide 25 mmol/L (22-29) 06/21/23 13:38 Anion Gap 13.8 (5-19) 06/21/23 13:38 BUN 17 mg/dL (-23) 06/21/23 13:38 Creatinine 0.7 mg/dL (0.5-0.9) 06/21/23 13:38 GFR Calculation Not Reportable 06/21/23 13:38 Glucose 119 mg/dL (65-115) H 06/21/23 13:38 Calculated Osmolality 289 mOsm/kg (285-295) 06/21/23 13:38 Calcium 8.8 mg/dL (8.5-10.5) 06/21/23 13:38 Magnesium 2.0 mg/dL (1.7-2.3) 06/21/23 13:38 Total Bilirubin 0.5 mg/dL (0.15-1.2) 06/21/23 13:38 AST 22 U/L (0-32) 06/21/23 13:38 ALT 16 U/L (0-33) 06/21/23 13:38 Alkaline Phosphatase 86 U/L (35-105) 06/21/23 13:38 Total Protein 7.0 g/dL (6.6-8.7) 06/21/23 13:38 Albumin 4.0 g/dL (3.5-5.2) 06/21/23 13:38 Globulin 3.0 g/dL (1.3-4.6) 06/21/23 13:38 Urine Color Yellow (Yellow) 06/21/23 14:30 Urine Appearance Clear (CLEAR) 06/21/23 14:30 Urine pH 9 (5-7) H 06/21/23 14:30 Ur Specific [place] 1.015 (1.005-1.030) 06/21/23 14:30 Urine Protein Neg (Negative) 06/21/23 14:30 Urine Glucose (UA) Norm (Normal) 06/21/23 14:30 Urine Ketones 1+ (Negative) H 06/21/23 14:30 Urine Blood Neg (Negative) 06/21/23 14:30 Urine Nitrate Negative (Negative) 06/21/23 14:30 Urine Bilirubin Neg (Negative) 06/21/23 14:30 Prot Sulfosalicylic Acd Negative (Negative) 06/21/23 14:30 Urine Urobilinogen Norm mg/dL (Negative) 06/21/23 14:30 Ur Leukocyte Esterase Negative (Negative) 06/21/23 14:30 EKG Data EKG 1: I personally reviewed and interpreted this EKG as follows: EKG interpretation date: 06/21/23 EKG interpretation time: 13:03 Prior EKG tracings: not available for review Interpretation: EKG showed ventricular rate 74 beats a minute, W[place] interval 165, QRS duration 82, QTc of 433, sinus rhythm, left atrial lodgment, right ventricular conduction delay, Discharge Plan Discharge Patient Disposition: Home Clinical Impression: Syncope Qualifiers: Syncope type: unspecified Qualified Code(s): R55 - Syncope and collapse Vomiting Qualifiers: Vomiting type: unspecified Nausea presence: unspecified Qualified Code(s): R11.10 - Vomiting, unspecified Condition: Stable Prescriptions: No Action loratadine 10 mg capsule 10 mg PO DAILY Macrobid 100 mg Capsule 100 mg PO BID Rx Instructions: must administer with a meal/food fluoxetine 40 mg capsule 40 mg PO DAILY atorvastatin 10 mg tablet 10 mg PO DAILY Discharge Orders: Discharge ED (Routine); Ordered 06/21/23 Ordered By: Stepan Morrison Referrals: Padmini Warren FNP [Primary Care Provider] - 1 week Patient Instructions: Syncope (ED), Acute Nausea and Vomiting (DC) Activity Restrictions/Additional Instructions: Please follow-up with your family practice physician in the next week or sooner as needed. For further evaluation and treatment. If the symptoms return and/or worsen please feel free to return to the ER. Coding Level of Care Code ED Legislative Analyst for Viraj Kerr
[2023-06-21 13:52] LABS: Basophils % 0.2 %; Eosinophils % 0.2 %; Hematocrit 39.9 % (36-47); Lymphocytes # 0.7 10^3/uL (0.8-4.8); Lymphocytes % 4.9 %; Mean Corpuscular HGB Conc 31.8 g/dL (30-55); Mean Corpuscular Hemoglobin 29.1 pg (27-33); Mean Corpuscular Volume 91.3 fl (85-98); Mean Platelet Volume 9.4 fL (7.4-10.4); Monocytes # 0.8 10^3/uL (0.2-0.9); Monocytes % 5.3 %; Neutrophils # 12.99 10^3/uL (1.8-7.7); Neutrophils % 88.9 %; Nucleated Red Blood Cells % 0 %; Platelet Count 236 10^3/cmm (157-399); Red Blood Count 4.37 10^6/uL (3.85-5.65); Red Cell Distribution Width 13.8 % (12.1-15.1); White Blood Count 14.62 10^3/uL (3.29-11.43)
[2023-06-21 14:15] LABS: Alanine Aminotransferase 16 U/L (0-33); Alkaline Phosphatase 86 U/L (35-105); Aspartate Amino Transferase 22 U/L (0-32); Blood Urea Nitrogen 17 mg/dL (8-23); Calcium 8.8 mg/dL (8.5-10.5); Carbon Dioxide 25 mmol/L (22-29); Chloride 103 mmol/L (98-107); Glucose 119 mg/dL (65-115); Osmolality Calculated 289 mOsm/kg (285-295); Sodium 138 mmol/L (136-145); Total Bilirubin 0.5 mg/dL (0.15-1.2)
[2023-06-21 14:18] LABS: Anion Gap 13.8 (5-19); Potassium 3.8 mmol/L (3.5-5.1)
[2023-06-21 14:49] LABS: Add Urine Microscopic? NO; Charge for UA Resulting for Rev
[2023-06-21 15:00] LABS: Specific Gravity, Urine 1.015 (1.005-1.030); Urine Appearance Clear (CLEAR); Urine Color Yellow (Yellow); pH Urine 9 (5-7)
[2023-06-21 15:01] LABS: Bilirubin Urine Neg (Negative); Blood Urine Neg (Negative); Glucose Urine UA Norm (Normal); Ketones Urine 1+ (Negative); Leukocyte Esterase Urine Negative (Negative); Nitrate Urine Negative (Negative); Protein Urine Neg (Negative); Sulfosalicylic Acid Urine Negative (Negative); Urobilinogen Urine Norm (Negative)
== END 2023-06-21 16:41 | disposition home or self-care (01) ==
PROVIDERS: Emergency Provider Emergency Medicine; PCP Nurse Practitioner Family
DX: R55 Syncope and collapse (principal); R11.10 Vomiting, unspecified; E78.5 Hyperlipidemia, unspecified
CPT/HCPCS: 36415; 71045; 80053; 81003; 83735; 85025; 93005; 99285; J7030

== ENCOUNTER → 2024-01-10 10:33 | Outpatient (BNVA) | payer MEDICARE, SELFPAY | PROVIDERS: PCP Nurse Practitioner Family; Visit Provider Nurse Practitioner Family | DX: Z78.0 Asymptomatic menopausal state (principal); Z12.11 Encounter for screening for malignant neoplasm of colon; E78.5 Hyperlipidemia, unspecified; E55.9 Vitamin D deficiency, unspecified; R73.9 Hyperglycemia, unspecified; J40 Bronchitis, not specified as acute or chronic; J30.89 Other allergic rhinitis; Z12.31 Encounter for screening mammogram for malignant neoplasm of breast | CPT/HCPCS: 80053; 80061; 82306; 83036; 84443; 85025 ==

== ENCOUNTER → 2024-01-15 09:58 | Outpatient (BNVA) | payer MEDICARE, SELFPAY | PROVIDERS: PCP Nurse Practitioner Family; Referring Provider Nurse Practitioner Family; Visit Provider Surgery | DX: Z12.11 Encounter for screening for malignant neoplasm of colon (principal) | CPT/HCPCS: 99024; 99204 ==

== ENCOUNTER 2024-01-17 13:29 | Outpatient (CLI) | payer MEDICARE, SELFPAY ==
--- NOTE | 2024-01-17 14:00 | XR_ITS ---
WS: [id number] SCREENING DEXA SCAN [employer] CLINICAL INFORMATION: Z78.0 - Asymptomatic menopausal state COMPARISON: 2018 FINDINGS: The L1-L4 bone mineral density measures 1.185 g/cm2. This corresponds to a T score score of 0.0 and Z score of 1.2. Left femoral neck bone mineral density measures 0.848 g/cm2. This corresponds to a T score of -1.3 an d Z score of 0.1. Right femoral neck bone mineral density measures 0.868 g/cm2. This corresponds to a T score -1.1of an d Z score of 0.2. Mean femoral neck bone mineral density measures 0.858 g/cm2. This corresponds to a T score of -1.2 an d Z score of 0.1. IMPRESSION: Normal bone mineralization lumbar spine. Osteopenia femoral necks. Patient's FRAX calculated 10 year probability for major osteoporotic fracture is 16.7% and osteoporot ic hip fracture is 3.2%. Bone mineral density lumbar spine increased 4.5% Bone mineral density femoral necks decreased -4.5%
--- NOTE | 2024-01-17 14:30 | MM_ITS ---
WS: [id number] BILATERAL 3D TOMOSYNTHESIS DIGITAL SCREENING MAMMOGRAPHY WITH CAD CLINICAL INFORMATION: Z12.39 - Encounter for other screening for malignant neop... HISTORY: Screening mammogram. No current complaints. COMPARISON: 2020 TECHNIQUE: Bilateral CC and MLO views. FINDINGS: Scattered fibroglandular densities bilaterally. No suspicious focal mass, asymmetry, calcifications, or architectural distortion. No evidence of malignancy. Incidental punctate calcifications. IMPRESSION: MM/[place] [id number] BI-RADS: 2-Benign FOLLOW UP: 1 Year Follow-up Recommend return to annual screening mammography.
== END 2024-01-17 13:30 | disposition home or self-care (01) ==
LOC: RAD 13:29
PROVIDERS: PCP Nurse Practitioner Family; Visit Provider Nurse Practitioner Family
DX: Z78.0 Asymptomatic menopausal state; Z12.31 Encounter for screening mammogram for malignant neoplasm of breast
CPT/HCPCS: 77063; 77067; 77080

== ENCOUNTER 2024-02-21 08:27 | Day surgery (SDC) | payer MEDICARE, SELFPAY ==
[2024-02-21 08:42] VITALS: BP 115/78; PULSE 91; RESP 17; TEMP 36.2; O2SAT 97; BMI 31.8
--- NOTE | 2024-02-21 08:52 | P.ANESASSM_ITS ---
Pre-Anesthetic Assessment Height/Weight: Height 1.6 m Operation Date: 02/21/24 09:30 Proposed Procedures p Colonoscopy(Not Applicable) - Canelo Mcguire DO Was Beta [place] taken within 24 hours: N/A Social No alcohol and No tobacco Exam alert, oriented x 3, clear to auscultation bilaterally and regular rate & rhythm Airway Submandibular: within normal limits Mallampati: Class II Metabolic Hyperlipidemia Anesthetic Plan ASA status: 3 Anesthesia: MAC Medications/Allergies Home Medications Medication Instructions Recorded Confirmed Last Taken Type loratadine 10 mg capsule 10 mg PO DAILY 10/22/19 02/19/24 02/20/24 History atorvastatin 10 mg tablet 10 mg PO BEDTIME 02/19/24 02/19/24 02/20/24 History calcium carbonate 500 mg-vitamin 2 tab PO BID 02/19/24 02/19/24 02/20/24 History D3 3.125 mcg (125 unit) tablet Allergies Allergy/AdvReac Type Severity Reaction Status Date / Time No Known Allergies Allergy Verified 01/15/24 10:30 [facility] Anesthesia Medical History Multiple renal calculi Hyperlipidemia Recurrent UTI Surgical History History of dilation and curettage Family History Mother , AT AGE 56-CANCER No problems noted. Father , AT AGE 83 Asthma Social History Smoking and tobacco/nicotine status: never used tobacco/nicotine Second hand smoke exposure: No Alcohol intake: current Alcohol intake frequency: holidays/special occasions only Substance/Drug Use: never Adopted: No Caregiver/support person: No Lives independently: No Household members: spouse Marital status: service: No Current occupational status: retired Current gender identity: Female Special neli needs: No Agree to transfusion: Yes Data Anesthesia Cardiac Studies: Echocardiogram 04/28/23 Cardiac Event Monitor 04/06/23
[2024-02-21] MEDS: sodium chloride 0.9% 1,000 ML 30 ML IV (08:53)
--- NOTE | 2024-02-21 09:59 | PM.HP ---
Providers/Chief Complaint Primary Care Provider: SARTHAK Guo Chief Complaint: Z12.11 History of Present Illness Pricila Salinas is a 73 year old female Review of Systems General: Reports: 10 or more systems reviewed and unremarkable except in HPI and below Medications/Allergies Home Medications Medication Instructions Recorded Confirmed Last Taken Type loratadine 10 mg capsule 10 mg PO DAILY 10/22/19 02/19/24 02/20/24 History atorvastatin 10 mg tablet 10 mg PO BEDTIME 02/19/24 02/19/24 02/20/24 History calcium carbonate 500 mg-vitamin 2 tab PO BID 02/19/24 02/19/24 02/20/24 History D3 3.125 mcg (125 unit) tablet Allergies Allergy/AdvReac Type Severity Reaction Status Date / Time No Known Allergies Allergy Verified 01/15/24 10:30 PFSH Acute PFSH: Medical History Multiple renal calculi Hyperlipidemia Recurrent UTI Surgical History History of dilation and curettage Family History Mother , AT AGE 56-CANCER No problems noted. Father , AT AGE 83 Asthma Social History Smoking and tobacco/nicotine status: never used tobacco/nicotine Second hand smoke exposure: No Alcohol intake: current Alcohol intake frequency: holidays/special occasions only Substance/Drug Use: never Adopted: No Caregiver/support person: No Lives independently: No Household members: spouse Marital status: service: No Current occupational status: retired Current gender identity: Female Special neli needs: No Agree to transfusion: Yes Vitals/I&O/Wt Last Vital Signs Temp 97.2 F L 02/21/24 08:42 Pulse 91 02/21/24 08:42 Resp 17 02/21/24 08:42 BP 115/78 02/21/24 08:42 Pulse Ox 97 02/21/24 08:42 O2 Del Method Room Air 02/21/24 08:42 Weight last 48 hrs Weight 180 lb A&P Assessment and plan (1) Screening for colon cancer: Plan Colonoscopy Attestations Medical Necessity Statement*: Home Coding Level of Care Code Acute Code for Chg Fwd Diagnoses Screening for colon cancer Z12.11
[2024-02-21 10:12] VITALS: BP 105/57; PULSE 75; RESP 14; TEMP 36.1; O2SAT 95
[2024-02-21 10:29] VITALS: BP 122/75; PULSE 77; RESP 16; O2SAT 95
--- NOTE | 2024-02-21 12:14 | ANE.PACU2 ---
Inpatient post-anesthesia follow up: Vital signs: Temperature 97.0 F Pulse Rate 77 Respiratory Rate 16 Blood Pressure 122/75 Pulse Oximetry 95 Oxygen Delivery Me thod Room Air Oxygen Flow Rate Fraction of Inspir ed Oxygen Hydration adequate: Yes Nausea and vomiting: No Pain level: 1 Mental status: Baseline
== END 2024-02-21 11:00 | disposition home or self-care (01) ==
PROVIDERS: PCP Nurse Practitioner Family; Visit Provider Surgery
PROC: 0DJD8ZZ Inspection of Lower Intestinal Tract, Via Natural or Artificial Opening Endoscopic (ICD-10-PCS; CPT 45378; principal; 2024-02-21 09:30)
DX: Z12.11 Encounter for screening for malignant neoplasm of colon (principal); K57.30 Diverticulosis of large intestine without perforation or abscess without bleeding; K64.8 Other hemorrhoids; E78.5 Hyperlipidemia, unspecified
CPT/HCPCS: G0121; J2704; J7030

== ENCOUNTER → 2024-06-17 15:49 | Outpatient (BNVA) | payer MEDICARE, SELFPAY | PROVIDERS: PCP Nurse Practitioner Family; Visit Provider Nurse Practitioner Family | DX: E78.5 Hyperlipidemia, unspecified (principal) | CPT/HCPCS: 80053; 80061; 83880; 85025 ==

== ENCOUNTER 2024-07-02 12:25 | Outpatient (CLI) | payer MEDICARE, SELFPAY ==
--- NOTE | 2024-07-02 12:30 | XR_ITS ---
WS: [id number] XR lumbar spine 2-3V* [id number] REASON FOR EXAM: M54.50 - Low back pain, unspecified FINDINGS: Moderate rotatory levoscoliosis of the lumbar spine. Straightening of the normal lordosis. No focal vertebral body abnormality. Mild narrowing of the intervertebral disc spaces at L1-L2, L2-L3, and L4-L5. A more significant narro wing of the disc space with vacuum phenomena at L3-L4 and L5-S1. Mild osteophytosis L2-S1. 3 to 4 mm of anterolisthesis of L4 in relation to L3 and L5. Moderate degenerative arthropathy in the facet joints L3-S1. XR/XR lumbar spine 2-3V* [id number] IMPRESSION: Degenerative spondylosis as above.
== END 2024-07-02 12:26 | disposition home or self-care (01) ==
PROVIDERS: PCP Nurse Practitioner Family; Visit Provider Nurse Practitioner Family
DX: M41.86 Other forms of scoliosis, lumbar region (principal); M43.16 Spondylolisthesis, lumbar region; M47.896 Other spondylosis, lumbar region; M47.898 Other spondylosis, sacral and sacrococcygeal region
CPT/HCPCS: 72100

== ENCOUNTER 2024-08-08 15:43 | Outpatient (CLI) | payer MEDICARE, SELFPAY ==
--- NOTE | 2024-08-08 16:00 | MR_ITS ---
WS: [id number] MRI LUMBAR SPINE NONCONTRAST TECHNIQUE: Sagittal T1, T2 and STIR imaging. Axial T1 and T2 imaging. CLINICAL INFORMATION: M43.10 - Spondylolisthesis, site unspecified COMPARISON: None. FINDINGS: Mild lumbar curve. No acute compression. Slight anterolisthesis L4 on L5. Disc space narrowing worse at L3-L5. L1-L2: Slight retrolisthesis. Mild disc bulging with slight effacement of the ventral thecal sac. Mod erate facet arthropathy. Mild LEFT foraminal narrowing. L2-L3: Mild disc bulge with osteophytic ridging. Mild central canal stenosis. Moderate facet arthropa thy. Spinal canal and foramen are patent. L3-L4: Mild disc bulge with endplate ridging. Slight narrowing of the RIGHT subarticular recess. Mode rate facet arthropathy with ligamentum flavum hypertrophy. Foramen are patent. L4-L5: Grade 1 anterolisthesis L4 on L5. Disc bulging in combination with facet arthropathy and ligam entum flavum hypertrophy results in moderate central canal stenosis with impingement traversing L5 ne rve roots bilaterally. Mild LEFT foraminal narrowing. L5-S1: Mild disc bulge with endplate ridging. Slight effacement of ventral thecal sac with slight con tact of the S1 nerve roots LEFT greater than RIGHT. Mild LEFT foraminal narrowing. Moderate thoracic kyphosis on the mobile web application developer imaging. Visualized pelvic bony structures: Normal. Paravertebral soft tissues: Normal. MR/MR lumbar spine wo con* [id number] IMPRESSION: 1. Mild lumbar curve. No acute compression. 2. Slight anterolisthesis L4 on L5 measuring 4 mm. 3. Moderate central canal stenosis L4-5 due to disc bulge and facet arthropath y with ligamentum flavum hypertrophy. Impingement of traversing L5 nerve roots bilaterally. 4. Mild central canal stenosis L2-L3 and L3-L4 with narrowing of the subarticu lar recess. 5. Moderate facet arthropathy worse at L4-L5 and L5-S1.
== END 2024-08-08 15:44 | disposition home or self-care (01) ==
LOC: RAD 15:45
PROVIDERS: PCP Nurse Practitioner Family; Visit Provider Nurse Practitioner Family
DX: M43.10 Spondylolisthesis, site unspecified (principal); M99.63 Osseous and subluxation stenosis of intervertebral foramina of lumbar region; M47.896 Other spondylosis, lumbar region; M47.898 Other spondylosis, sacral and sacrococcygeal region; M40.204 Unspecified kyphosis, thoracic region
CPT/HCPCS: 72148

== ENCOUNTER → 2024-08-20 12:45 | Outpatient (BNVA) | payer MEDICARE, SELFPAY | PROVIDERS: PCP Nurse Practitioner Family; Visit Provider Orthopaedic Surgery | DX: M54.9 Dorsalgia, unspecified (principal) | CPT/HCPCS: 72110; 99204 ==

== ENCOUNTER → 2024-08-26 11:00 | Outpatient (BNVA) | payer MEDICARE, SELFPAY | PROVIDERS: PCP Nurse Practitioner Family; Visit Provider Nurse Practitioner Family | DX: R39.9 Unspecified symptoms and signs involving the genitourinary system (principal); R10.9 Unspecified abdominal pain; N39.0 Urinary tract infection, site not specified | CPT/HCPCS: 80053; 81000; 85025 ==

== ENCOUNTER 2024-09-05 06:00 | Outpatient (RCR) | payer MEDICARE, SELFPAY | END 2024-09-21 23:59 | disposition home or self-care (01) | LOC: TPT 06:00 | PROVIDERS: PCP Nurse Practitioner Family; Visit Provider Orthopaedic Surgery | DX: M54.9 Dorsalgia, unspecified (principal); G89.29 Other chronic pain | CPT/HCPCS: 97110; 97162 ==

== ENCOUNTER 2024-09-10 08:02 | Outpatient (CLI) | payer MEDICARE, SELFPAY ==
--- NOTE | 2024-09-10 08:30 | US_ITS ---
WS: [id number] Complete ABDOMINAL ULTRASOUND HISTORY: R10.9 - Unspecified abdominal pain COMPARISON: 08/07/2017 Liver: 14.9 cm in length. Normal size liver and echogenicity. No bile duct dilatation or mass. Portal Vein: Normal hepatopetal flow with monophasic waveform. Gallbladder: Normally distended gallbladder with no stones or wall thickening. CBD: 0.4 cm Pancreas: Poorly visualized. Right kidney: 9.8 cm x 5.1 x 4.4 cm. Cortex:1.0 cm. Normal size and echogenicity. No hydronephrosis or mass. Left kidney: 10.0 cm x 5.3 cm x 5.3 cm. Cortex: 1.1 cm. Normal size and echogenicity. No hydronephrosis or mass. Tiny cortical cyst measuring 6 x 5 x 6 mm fr om the lower pole. Spleen: 8.7 cm. Normal size and echogenicity. Aorta and IVC: Unremarkable abdominal aorta and IVC. US/US abdomen complete* [id number] Impression: 1. Normal gallbladder. 2. Negative liver. 3. No hydronephrosis. 4. Tiny RIGHT renal cortical cyst.
== END 2024-09-10 08:03 | disposition home or self-care (01) ==
LOC: RAD 08:03
PROVIDERS: PCP Nurse Practitioner Family; Visit Provider Nurse Practitioner Family
DX: R10.9 Unspecified abdominal pain (principal); N28.1 Cyst of kidney, acquired
CPT/HCPCS: 76700

== ENCOUNTER → 2024-09-17 12:36 | Outpatient (BNVA) | payer MEDICARE, SELFPAY | PROVIDERS: PCP Nurse Practitioner Family; Referring Provider Nurse Practitioner Family; Visit Provider Nurse Practitioner Family | DX: L57.8 Other skin changes due to chronic exposure to nonionizing radiation (principal); L81.4 Other melanin hyperpigmentation; D48.5 Neoplasm of uncertain behavior of skin; L57.0 Actinic keratosis | CPT/HCPCS: 11102; 17000; 99203 ==

== ENCOUNTER 2024-09-22 06:00 | Outpatient (RCR) | payer MEDICARE, SELFPAY | END 2024-10-22 23:59 | disposition home or self-care (01) | LOC: TPT 06:00 | PROVIDERS: PCP Nurse Practitioner Family; Visit Provider Orthopaedic Surgery | DX: M54.9 Dorsalgia, unspecified (principal); G89.29 Other chronic pain | CPT/HCPCS: 97110 ==

== ENCOUNTER → 2024-10-02 14:49 | Outpatient (BNVA) | payer MEDICARE, SELFPAY | PROVIDERS: PCP Nurse Practitioner Family; Visit Provider Nurse Practitioner Family | DX: N39.0 Urinary tract infection, site not specified (principal) | CPT/HCPCS: 81003; 87086 ==

== ENCOUNTER → 2024-10-21 13:31 | Outpatient (BNVA) | payer MEDICARE, SELFPAY | PROVIDERS: PCP Nurse Practitioner Family; Visit Provider Nurse Practitioner Family | DX: R05.9 Cough, unspecified (principal) | CPT/HCPCS: 87400; 87426 ==

== ENCOUNTER 2024-10-23 06:30 | Outpatient (RCR) | payer MEDICARE, SELFPAY | END 2024-11-22 23:59 | disposition home or self-care (01) | LOC: TPT 06:30 | PROVIDERS: PCP Nurse Practitioner Family; Visit Provider Orthopaedic Surgery | DX: M54.9 Dorsalgia, unspecified (principal); G89.29 Other chronic pain | CPT/HCPCS: 97110 ==

== ENCOUNTER → 2024-10-30 13:33 | Outpatient (BNVA) | payer MEDICARE, SELFPAY | PROVIDERS: PCP Nurse Practitioner Family; Visit Provider Internal Medicine | DX: R00.2 Palpitations (principal); E78.5 Hyperlipidemia, unspecified; R06.02 Shortness of breath; R07.9 Chest pain, unspecified; R73.9 Hyperglycemia, unspecified; R60.9 Edema, unspecified | CPT/HCPCS: 36415; 80048; 83880; 99214 ==

== ENCOUNTER → 2024-11-19 12:32 | Outpatient (BNVA) | payer MEDICARE, SELFPAY | PROVIDERS: PCP Nurse Practitioner Family; Visit Provider Orthopaedic Surgery | DX: M48.062 Spinal stenosis, lumbar region with neurogenic claudication (principal) | CPT/HCPCS: 99213 ==

== ENCOUNTER 2024-11-23 06:30 | Outpatient (RCR) | payer MEDICARE, SELFPAY | END 2024-12-20 23:59 | disposition home or self-care (01) | LOC: TPT 06:30 | PROVIDERS: PCP Nurse Practitioner Family; Visit Provider Orthopaedic Surgery | DX: M54.50 Low back pain, unspecified (principal); G89.29 Other chronic pain | CPT/HCPCS: 97110; 97161 ==

== ENCOUNTER 2024-11-26 07:04 | Outpatient (CLI) | payer MEDICARE, SELFPAY ==
--- NOTE | 2024-11-26 | ECG_ITS ---
[facility] Test Date: 2024-11-26 Pat Name: Pricila Salinas Department: Room: Gender: Female Manager Company: : 1950 Requested By: Christo Bar Order Number: [id number] Jorge MD: Christo Bar M.D. Interpretive Statements EXERCISE MIBI EXERCISE DATA: The patient was exercised by Sunday protocol. Baseline heart rate was 77 beats per minute. Baseline blood pressure was 134/74 millimeters of mercury. Maximal predicted heart rate was 144 beats per minute. Maximum heart rate achieved was 134 which was 93% of the maximum predicted heart rate. Maximum blood pressure was 152/68 millimeters of mercury. Total exercise time was 3 minutes and 45 seconds. Maximum METs achieved was 7. The reason for ending the test was completion of protocol. The patient complained of shortness of breath during the stress test, which then resolved at the end of the test. ELECTROCARDIOGRAM: BASELINE: Showed sinus rhythm, normal axis, no significant ST-T changes at the baseline noted. [] EXERCISE: At the peak exercise level, [] No significant ST-T changes suggestive of ischemia noted. [] RECOVERY: During the recovery period, heart rate dropped appropriately. No significant ST-T changes in the recovery suggestive of ischemia noted. [] CONCLUSION: 1. Exercise capacity is fair. 2. Heart rate response was appropriate. 3. Blood pressure response was appropriate 4. Symptoms not suggestive of ischemia. 5. Electrocardiogram portion of the stress test was not suggestive of ischemia. 6. Nuclear scan will be documented separately. Electronically Signed On 12-15-2024 13:19:58 CORROSION CONTROL SPECIALIST by Christo Bar M.D. [email or web address]
[2024-11-26 07:14] VITALS: BMI 33.6
--- NOTE | 2024-11-26 07:14 | NMCV_ITS ---
NM gus perf SPECT r/s* 00003 Pricila Salinas Age: 74 Gender: F : 1950 Exam Date: 11/26/2024 08:12 Ordering Phys: Christo Bar M.D ([email or web address]) Technologist: AMINTA Julian Exam Location: [facility] Indications: cp STRESS TEST Please see separate stress test report in [facility] for full findings IMAGE PROTOCOL Rest/Stress 1 Lexiscan Day Radiopharmaceutical Dose (mCi) Administration Site Administered by Rest: Tc-99m 10.7 IV Elsa Cortes OCCUPATIONAL THERAPY TECHNICIAN Sestamibi Stress:Tc-99m 32.6 IV Elsa Abdulgle, OCCUPATIONAL THERAPY TECHNICIAN Sestamibi Rest: 26-Nov-2024 60 Discovery 630 Stress: 26-Nov-2024 30 Discovery 630 0.4mg Lexiscan. Images obtained in supine and prone position. SPECT RESULTS Technical Quality: Good Raw Data Analysis: Normal Image Corrections: No attenuation or motion correction applied Summed Stress Score: 0 Summed Rest Score: 0 Summed Difference Score: 0 PERFUSION FINDINGS SPECT images demonstrate homogeneous tracer distribution throughout the myocardium. FUNCTIONAL RESULTS (calculated via Gated SPECT) Stress Image LV EF (%): 92 Stress EDV (mL):39 TID: 0.54 Stress ESV (mL):3 FUNCTIONAL FINDINGS: There is normal left ventricular systolic function. IMPRESSIONS 1. Normal myocardial perfusion imaging with no evidence of ischemia 2. LV systolic function is normal Christo Bar MD (Electronically Signed) Final Date: 26 November 2024 19:52 S
[2024-11-26 08:59] VITALS: BP 141/63; PULSE 92
== END 2024-11-26 07:05 | disposition home or self-care (01) ==
LOC: CDL 07:05
PROVIDERS: PCP Nurse Practitioner Family; Visit Provider Internal Medicine
DX: R07.9 Chest pain, unspecified (principal)
CPT/HCPCS: 36415; 78452; 93017; 96374; A9500

== ENCOUNTER 2024-11-26 11:40 | Outpatient (CLI) | payer MEDICARE, SELFPAY ==
--- NOTE | 2024-11-26 12:00 | USCV_ITS ---
Pricila Salinas Age: 74 Gender: F : 1950 Exam Date: 11/26/2024 12:20 Ordering Phys: Christo Bar M.D ([email or web address]) Technologist: CT [place]am [place] [facility] [place]ication: sob BP: 130 / 76 HR: 75 Rhythm: Sinus Technical Quality: Adequate MEASUREMENTS (Male / Female) Normal Values 2D ECHO LVOT Diameter 2.0 cm LV Ejection Fraction MOD 4C 70.4 % LV Ejection Fraction MOD 2C 61.8 % LV Ejection Fraction 2C AL 63.0 % LA Diameter 3.2 cm RA Systolic Volume 4C AL 24.2 ml RA Systolic Volume 4C MOD 23.1 ml LA Sys Volume AL 26.3 cm cubed LA Sys Volume Index AL 12.8 cm cubed/m squared Aorta at Sinotubular Diameter 2.3 cm M-MODE LA Ao Ratio MM 0.9 AV Cusp Separation MM 2.1 cm DOPPLER AV Peak Velocity 118.0 cm/s LVOT Peak Velocity 103.0 cm/s AV Area Cont Eq vti 3.3 cm squared AV Area Cont Eq pk 2.9 cm squared MV Peak Velocity 84.0 cm/s MV Area PHT 3.6 cm squared Mitral E to A Ratio 0.9 TR Peak Velocity 272.0 cm/s TR Peak Gradient 29.6 mmHg TR Mean Velocity 209.0 cm/s TR Mean Gradient 19.2 mmHg TR Velocity Time Integral 62.1 cm TV Peak E Velocity 66.0 cm/s PV Peak Velocity 73.5 cm/s FINDINGS Left Ventricle Left ventricle is normal in size. LV systolic function is normal with EF of 60-65%. No regional wall motion abnormalities are seen. Grade 1 diastolic dysfunction Right Ventricle Normal in size and function. Right Atrium Normal in size Left Atrium Normal in size Mitral Valve Structurally normal mitral valve. Trace mitral regurgitation Aortic Valve Structurally normal aortic valve. No significant stenosis or regurgitation. Tricuspid Valve Mild tricuspid regurgitation. Pulmonary artery systolic pressure is normal. Pulmonic Valve Not well visualized Pericardium Normal Aorta Normal in size IVC Not visualized CONCLUSIONS LV systolic function is normal with EF of 60-65% Grade 1 diastolic dysfunction Trace mitral regurgitation Mild tricuspid regurgitation Compared to prior echocardiogram from 2022, no significant changes are seen Christo Bar MD (Electronically Signed) Final Date: 29 November 2024 14:58 S
== END 2024-11-26 11:41 | disposition home or self-care (01) ==
LOC: RAD 11:40
PROVIDERS: PCP Nurse Practitioner Family; Visit Provider Internal Medicine
DX: R06.02 Shortness of breath (principal); R93.1 Abnormal findings on diagnostic imaging of heart and coronary circulation; I07.1 Rheumatic tricuspid insufficiency
CPT/HCPCS: 93306

== ENCOUNTER 2024-12-21 06:00 | Outpatient (RCR) | payer MEDICARE, SELFPAY | END 2025-01-20 23:59 | disposition home or self-care (01) | LOC: TPT 06:00 | PROVIDERS: PCP Nurse Practitioner Family; Visit Provider Orthopaedic Surgery | DX: M54.50 Low back pain, unspecified (principal); G89.29 Other chronic pain | CPT/HCPCS: 97110 ==

== ENCOUNTER → 2025-01-29 12:41 | Outpatient (BNVA) | payer MEDICARE, SELFPAY | PROVIDERS: PCP Nurse Practitioner Family; Visit Provider Internal Medicine | DX: R00.2 Palpitations (principal); R60.0 Localized edema; R06.00 Dyspnea, unspecified; E78.5 Hyperlipidemia, unspecified; G47.19 Other hypersomnia; I51.89 Other ill-defined heart diseases | CPT/HCPCS: 99214 ==

== ENCOUNTER → 2025-02-06 13:23 | Outpatient (BNVA) | payer MEDICARE, SELFPAY | PROVIDERS: PCP Nurse Practitioner Family; Visit Provider Nurse Practitioner Family | DX: L82.1 Other seborrheic keratosis (principal); L72.11 Pilar cyst; L57.8 Other skin changes due to chronic exposure to nonionizing radiation; L81.4 Other melanin hyperpigmentation; L82.0 Inflamed seborrheic keratosis; L29.89 Other pruritus; Z78.9 Other specified health status; L53.8 Other specified erythematous conditions; L57.0 Actinic keratosis | CPT/HCPCS: 17000; 17110; 99213 ==